=== PATIENT | female | born 1995 | race Hispanic/Latino ===

== ENCOUNTER 2023-07-20 05:32 | Inpatient (IN) | payer MEDICAID, OTHER, SELFPAY ==
[2023-07-19 14:39] LABS: Hematocrit 33.3 % (34.9-44.5); Hemoglobin 11.9 g/dL (12.0-15.5); Mean Corpuscular HGB CONC 35.7 g/dL (32.0-36.0); Mean Corpuscular Hemoglobin 31.2 pg (27.0-33.0); Mean Corpuscular Volume 87.2 fl (81.6-98.3); Mean Platelet Volume 9.9 fl (7.4-10.4); Platelet Count 281 10x3/uL (150-450); RBC Distribution Width 12.4 % (11.5-14.5); Red Blood Cell (RBC) Count 3.82 10x6/uL (3.90-5.03); White Blood Cell (WBC) Count 7.2 10x3/uL (3.5-10.5)
[2023-07-19 14:57] LABS: Syphilis Antibody Nonreactive (Nonreactive); Syphilis Antibody Index 0.09 S/CO (<1.00 Non-Reactive)
[2023-07-19 14:59] LABS: HBSAg Index 0.35 S/CO (0-0.99); HIV (1/2) Antibody/Antigen Non-Reactive (NonReactive); HIV 1/2 INDEX 0.09 S/CO (<1.00); Hep B Surf Ag Non-Reactive S/CO (NonReactive)
[2023-07-20] MEDS ORDERED: Carboprost 250 MCG/ML AMP IM PRN (06:10)
[2023-07-20] MEDS ORDERED: Lactated Ringer's 1,000 ML IV SCH (06:10)
[2023-07-20] MEDS ORDERED: Oxytocin 30 units/NS 500 ML 500 ML IV SCH ×2 (06:10→11:18)
[2023-07-20] MEDS ORDERED: Bicitra 30 ML UDCUP PO PRN (06:10)
[2023-07-20] MEDS ORDERED: Methylergonovine 0.2 MG/ML VIAL IM PRN (06:10)
[2023-07-20] MEDS ORDERED: hydrALAZINE 20 MG/ML VIAL SLOW IVP PRN ×2 (06:10→11:18)
[2023-07-20] MEDS ORDERED: Promethazine HCl 25 MG/ML VIAL IM PRN ×2 (06:10→11:18)
[2023-07-20] MEDS ORDERED: Ondansetron PF 4 MG/2 ML Vial IVP PRN ×3 (06:10→11:18)
[2023-07-20] MEDS ORDERED: Diphenoxylate HCl/Atropine Tablet PO PRN (06:10)
[2023-07-20] MEDS ORDERED: Tranexamic Acid 1,000 MG/10 ML VIAL IVP PRN (06:10)
[2023-07-20] MEDS ORDERED: Misoprostol 200 MCG TAB PR PRN (06:10)
[2023-07-20 06:11] VITALS: BMI 34.7
[2023-07-20] MEDS: CEFAZOLIN 2 GM in Sodium Chloride 0.9% 100 ML IVPB SCH (07:25)
[2023-07-20] MEDS: Famotidine/PF 20 mg/2ml Vial SLOW IVP PRN (07:25)
[2023-07-20] MEDS ORDERED: HYDROmorphone 0.5 MG/0.5 ML SYRINGE SLOW IVP PRN (08:55)
[2023-07-20] MEDS ORDERED: fentaNYL 50 mcg/mL 1 mL Vial SLOW IVP PRN (08:55)
[2023-07-20] MEDS ORDERED: Meperidine HCl/PF 25 MG (1 mL) VIAL SLOW IVP PRN (08:55)
[2023-07-20] MEDS: Ketorolac Tromethamine 30 MG (1 mL) VIAL IVP SCH ×2 (10:50→17:13)
[2023-07-20] MEDS ORDERED: Lanolin Ointment 7 GM TUBE TOP PRN (11:18)
[2023-07-20] MEDS ORDERED: Bisacodyl 10 MG SUPP PR PRN (11:18)
[2023-07-20] MEDS: Oxytocin 10 UNITS/ML VIAL ONE ×2 (12:07→12:12)
[2023-07-20] MEDS: fentaNYL 50 mcg/mL 1 mL Vial ONE (12:07)
[2023-07-20] MEDS: Morphine PF 10 MG/10 ML VIAL ONE (12:07)
[2023-07-20] MEDS: diphenhydrAMINE 50 MG/ML VIAL ONE (12:08)
[2023-07-20] MEDS: PHENYLEPHRINE-NS 100 MCG/ML 10 ML SYRINGE ONE ×2 (12:08→12:09)
[2023-07-20] MEDS: ePHEDrine Sulfate 50 MG/10 ML VIAL ONE (12:08)
[2023-07-20] MEDS: Phytonadione Neonatal 1 MG/0.5 ML AMP ONE (12:09)
[2023-07-20] MEDS: Erythromycin Base 0.5% Oint 1 GM TUBE ONE (12:10)
[2023-07-20] MEDS: Docusate 100 MG CAP PO SCH ×2 (12:12→21:42)
[2023-07-20] MEDS: Ferrous Sulfate 325 MG TAB PO SCH ×2 (12:12→21:01)
[2023-07-20] MEDS: Prenatal Vitamin 1 TAB PO SCH (12:12)
[2023-07-20] MEDS: Hepatitis B Vaccine 10 MCG/0.5 ML SYR ONE (12:13)
[2023-07-20] MEDS: Boostrix 0.5 ML (Tdap) VIAL (>/=7 yrs of age) IM ONE (12:13)
[2023-07-20] MEDS: diphenhydrAMINE 25 MG CAP PO PRN (19:40)
[2023-07-20] MEDS ORDERED: Meperidine HCl/PF 25 MG (1 mL) VIAL IM PRN (21:00)
[2023-07-20] MEDS ORDERED: HYDROcodone/Acetaminophen 5/325 mg Tablet PO PRN (21:00)
[2023-07-21] MEDS: Ketorolac Tromethamine 30 MG (1 mL) VIAL IVP SCH (00:39)
[2023-07-21 03:29] LABS: Hematocrit 27.4 % (34.9-44.5); Hemoglobin 9.5 g/dL (12.0-15.5); Mean Corpuscular HGB CONC 34.7 g/dL (32.0-36.0); Mean Corpuscular Hemoglobin 30.4 pg (27.0-33.0); Mean Corpuscular Volume 87.5 fl (81.6-98.3); Mean Platelet Volume 9.5 fl (7.4-10.4); Platelet Count 205 10x3/uL (150-450); RBC Distribution Width 12.5 % (11.5-14.5); Red Blood Cell (RBC) Count 3.13 10x6/uL (3.90-5.03); White Blood Cell (WBC) Count 8.3 10x3/uL (3.5-10.5)
[2023-07-21] MEDS: HYDROcodone/Acetaminophen 5/325 mg Tablet PO PRN (10:49)
[2023-07-21] MEDS: Simethicone Chewable 80 MG TAB PO PRN (10:57)
[2023-07-21] MEDS: Prenatal Vitamin 1 TAB PO SCH (10:58)
[2023-07-21] MEDS: Ibuprofen 800 MG TAB PO SCH (16:24)
[2023-07-22] MEDS: Milk Of Magnesia 30 ML UDCUP PO PRN (18:31)
[2023-07-23] MEDS: Ibuprofen 800 MG TAB PO SCH (00:47)
[2023-07-23 07:49] VITALS: BP 110/60; TEMP 98.3
== END 2023-07-23 12:50 | disposition home or self-care (01) | DRG 788 ==
LOC: CSHLD 05:32 → CSHPP 11:56
PROVIDERS: ADMIT Family Medicine; ATTEND Family Medicine
PROC: 10D00Z1 Extraction of Products of Conception, Low, Open Approach (ICD-10-PCS; principal; 2023-07-20)
PROC: 3E0P05Z Introduction of Adhesion Barrier into Female Reproductive, Open Approach (ICD-10-PCS; 2023-07-20)
DX: O34.211 Maternal care for low transverse scar from previous cesarean delivery (principal); Z3A.39 39 weeks gestation of pregnancy; Z37.0 Single live birth; Z88.0 Allergy status to penicillin; E66.9 Obesity, unspecified; O99.214 Obesity complicating childbirth
CPT/HCPCS: 36415; 51702; 85027; 86780; 86850; 86900; 86901; 87340; 87389; J1200; J1885; J2274; J2590; J3010; J3490; S0028